=== PATIENT | female | born 1935 | race Caucasian/White ===

== ENCOUNTER 2017-01-09 03:56 | Inpatient (IN) | payer MEDICARE, OTHER ==
[~2017-01-09] VITALS: Ht 154.9 cm; Wt 39.1 kg
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
[2017-01-13] MEDS ORDERED: PRESERVISION A1 EACH PO (18:23)
[2017-01-13] MEDS ORDERED: VITAMIN D2000 UNIT PO (18:23)
[2017-01-13] MEDS ORDERED: SODIUM CHLORIDE 5% OU (18:24)
[2017-01-13] MEDS ORDERED: PRED FORTE 1% DP5 ML OS (18:25)
[2017-01-13] MEDS ORDERED: HYDROCHLOROTHIA25 MG PO (18:25)
[2017-01-13] MEDS ORDERED: ZESTRIL DPS10 MG PO (18:25)
[2017-01-13] MEDS ORDERED: TOPROL XL DPS25 MG PO (18:26)
[2017-01-13] MEDS ORDERED: LEVAQUIN DPS500 MG PO (18:26)
[2017-01-13] MEDS ORDERED: FLAGYL-DPS500 MG PO (18:27)
[2017-01-13] MEDS ORDERED: PROBIOTIC1 EAC1 PO (18:27)
[2017-01-13] MEDS ORDERED: COLACE-DPS100 MG PO (18:27)
[2017-01-13] MEDS ORDERED: MAALOX DPS30 ML PO (18:28)
[2017-01-13] MEDS ORDERED: TYLENOL DPS325 MG PO (18:29)
--- NOTE | 2017-01-27 08:08 | DS ---
ADMIT: 01/09/2017 RM/LOC: 415 [facility] MR#: [id number] [address] [place], [place] [address] [facility]A [address] [place] [address] General Discharge Summary SEX: F AGE: 81 : 1935 ADMISSION DATE: 01/09/2017 DISCHARGE DATE: 01/12/2017 PROCEDURE DONE DURING HOSPITALIZATION: None. DISPOSITION: Improved, the patient went to home. CODE STATUS: Full. FINAL DIAGNOSES: 1. Diverticulitis. 2. Ovarian cyst. 3. Hypertension. HISTORY OF PRESENT ILLNESS: The patient originally presented to [place], [place], where she had a CT of her abdomen and pelvis after complaining of nausea, vomiting, and diarrhea as well as fever. The patient was diagnosed with diverticulitis with possible abscess and possible perforation. The patient was transferred to [place]. The patient was admitted for antibiotic treatment as well as possible surgical interventions, thus, Surgery was consulted. The patient was started on vanc and Zosyn for IV therapy for diverticulitis. CT of abdomen and pelvis at our hospital showed diverticulitis, there was concern for a left hemipelvic abscess versus ovarian cyst. Ultrasound was then done to further evaluate this. Ultrasound confirmed a left ovarian cyst rather than abscess, also no concern for perforation as far as imaging. Ultimately, the patient continued to improve with IV antibiotics. She did have some elevated blood pressures, so the patient was started on antihypertensive medications. The patient was seen by Physical Therapy and Occupational Therapy, and it was deemed that the patient was stable and was able to provide for herself as far as her activities of daily living. So, the patient was discharged back home, to follow up with her PCP and also to follow up with General Surgery in one month in [place]. Medications at time of discharge included: 1. HydroDIURIL 25 mg daily. 2. Zestril 10 mg daily. 3. Colace 100 mg b.i.d. p.r.n. ADMIT: 01/09/2017 RM/LOC: 415 [facility] MR#: [id number] 2620 [facility] [address] [place] [address] [facility]A [address] [place] [address] General Discharge Summary SEX: F AGE: 81 : 1935 4. Maalox q.6 hours p.r.n. 5. Tylenol 650 mg p.r.n. 6. Antibiotic treatment was Levaquin 500 mg daily x10 days. 7. Flagyl 500 mg t.i.d. x10 days. 8. The patient is also to take a probiotic for 2 weeks. 9. The patient was also started on Toprol 25 mg q.a.m. The patient's home medications were continued as far as: 1. PreserVision AREDS. 2. Vitamin D. 3. Artificial Tear drops. No labs or imaging was ordered for followup. The patient, again, was discharged back home in stable condition. Olivia Kay MD Resident / Prasanth Lopez MD / modl JOB #: [id number] CC: Prasanth Lopez MD, Attending Physician Prasanth Lopez MD, Family Physician
== END 2017-01-12 14:32 | disposition home or self-care (01) | DRG 378 ==
LOC: ER 03:56 → 4PCU 04:19
PROVIDERS: ADMIT Family Medicine
DX: K57.21 Diverticulitis of large intestine with perforation and abscess with bleeding (principal); E44.0 Moderate protein-calorie malnutrition; Z68.1 Body mass index [BMI] 19.9 or less, adult; H40.9 Unspecified glaucoma; E16.2 Hypoglycemia, unspecified; I10 Essential (primary) hypertension; N83.202 Unspecified ovarian cyst, left side; Z90.81 Acquired absence of spleen; Z94.7 Corneal transplant status